=== PATIENT | female | born 1965 ===

== ENCOUNTER → 2019-01-15 | Outpatient (CLI) | payer OTHER | LOC: BC 08:48 | DX: Z12.31 Encounter for screening mammogram for malignant neoplasm of breast (principal) ==

== ENCOUNTER → 2020-01-31 | Outpatient (CLI) | payer OTHER | LOC: BC 09:07 | PROVIDERS: ATTEND Family Medicine | DX: Z12.31 Encounter for screening mammogram for malignant neoplasm of breast (principal) ==